=== PATIENT | female | born 1990 | race Caucasian/White ===

== ENCOUNTER 2017-03-13 19:56 | Inpatient (IN) | payer BC, OTHER ==
[2017-03-13] MEDS ORDERED: Sodium Chloride 0.9% 10 ML Syringe FLUSH PRN (20:47)
[2017-03-13] MEDS ORDERED: Nalbuphine 20 MG/1 ML Amp IVPUSH PRN (20:53)
[2017-03-13] MEDS ORDERED: Oxytocin/Lactated Ringers 10 UNIT/1,000 ML BAG IV SCH (21:00)
[2017-03-13] MEDS: Lactated Ringers 1,000 ML IV SCH ×3 (21:20→23:33)
[2017-03-13] MEDS ORDERED: diphenhydrAMINE 50 MG/ML SDV IVPUSH PRN (21:49)
[2017-03-13] MEDS ORDERED: fentaNYL 100 MCG/2 ML SDV EPIDUR PRN (21:49)
[2017-03-13] MEDS ORDERED: ePHEDrine 50 MG/ML SDV IVPUSH PRN (21:49)
[2017-03-13] MEDS ORDERED: Bupivacaine/fentaNYL/NS 100 ML Bag EPIDUR SCH (22:00)
--- NOTE | 2017-03-13 22:23 | PCM.PREANE ---
Preanesthetic Assessment - Anesthesia/Transfusion/Family Hx Anesthesia History: No Prior Anesthesia Family History of Anesthesia Reaction: No Transfusion History: No Prior Transfusion(s) - Review of Systems General: No Symptoms Pulmonary: No Symptoms Cardiovascular: No Symptoms Gastrointestinal: No Symptoms Neurological: No Symptoms Other: Reports: None - Physical Assessment Pulse: 76 O2 Sat by Pulse Oximetry: 100 Respiratory Rate: 20 Blood Pressure: 117/59 Temperature: 98.4 F Height: 5 ft 11 in Weight: 72.575 kg ASA Class: 2 Mental Status: Alert & Oriented x3 Airway Class: Mallampati = 1 Dentition: Reports: Normal Dentition Thyro-Mental Finger Breadths: 3 Mouth Opening Finger Breadths: 3 ROM/Head Extension: Full Lungs: Clear to Auscultation, Normal Respiratory Effort Cardiovascular: Regular Rate, Regular Rhythm - Lab Values: Laboratory Last Values WBC 10.96 K/mm3 (3.98-10.04) H 03/13/17 21:04 RBC 4.47 M/mm3 (3.98-5.22) 03/13/17 21:04 Hgb 12.3 gm/L (11.2-15.7) 03/13/17 21:04 Hct 38.0 % (34.1-44.9) 03/13/17 21:04 MCV 85.0 fl (79.4-94.8) 03/13/17 21:04 MCH 27.5 pg (25.6-32.2) 03/13/17 21:04 MCHC 32.4 g/dl (32.2-35.5) 03/13/17 21:04 RDW Std Deviation 42.2 fL (36.4-46.3) 03/13/17 21:04 Plt Count 206 K/mm3 (182-369) 03/13/17 21:04 MPV 12.3 fl (9.4-12.3) 03/13/17 21:04 Neut % (Auto) 74.3 % (34.0-71.1) H 03/13/17 21:04 Lymph % (Auto) 17.3 % (19.3-51.7) L 03/13/17 21:04 [place] % (Auto) 7.7 % (4.7-12.5) 03/13/17 21:04 Eos % (Auto) 0.3 (0.7-5.8) L 03/13/17 21:04 Baso % (Auto) 0.2 % (0.1-1.2) 03/13/17 21:04 Neut # (Auto) 8.15 K/mm3 (1.56-6.13) H 03/13/17 21:04 Lymph # (Auto) 1.90 K/mm3 (1.18-3.74) 03/13/17 21:04 [place] # (Auto) 0.84 K/mm3 (0.24-0.36) H 03/13/17 21:04 Eos # (Auto) 0.03 K/mm3 (0.04-0.36) L 03/13/17 21:04 Baso # (Auto) 0.02 K/mm3 (0.01-0.08) 03/13/17 21:04 - Allergies Allergies/Adverse Reactions: Allergies Allergy/AdvReac Type Severity Reaction Status Date / Time Penicillins Allergy Rash Verified 08/17/16 13:54 - Blood Blood Available: No - Acknowledgements Anesthesia Type Planned: Epidural Pt an Appropriate Candidate for the Planned Anesthesia: Yes Alternatives and Risks of Anesthesia Discussed w Pt/Guardian: Yes Pt/Guardian Understands and Agrees with Anesthesia Plan: Yes PreAnesthesia Questionnaire Cardiovascular History: Reports: None Respiratory History: Reports: None Gastrointestinal History: Reports: GERD (with preg) : 1 (39 weeks 2) Para: 0 - SUBSTANCE USE Smoking Status *Q: Never Smoker Tobacco Use Within Last Twelve Months: No Second Hand Smoke Exposure: No Days Per Week of Alcohol Use: 0 Recreational Drug Use History: No - HOME MEDS Home Medications: Home Meds Cranberry Conc/Ascorbic Acid [Cranberry 6,000 mg Softgel] 1 each PO DAILY [History] Doxylamine/Pyridoxine HCl [Diclegis Dr 10-10 mg Tablet] 10 mg PO DAILY PRN 08/17 [History] Vit 90/Iron Fum/Folic [ Formula] 1 each PO DAILY 08/17/16 [ History] - CURRENT (IN HOUSE) MEDS Current Meds: Current Medications Diphenhydramine HCl (Benadryl) 25 mg IVPUSH Q6H PRN PRN Reason: pruritis Ephedrine Sulfate (Ephedrine Sulfate) 5 mg IVPUSH ASDIRECTED PRN PRN Reason: Hypotension Fentanyl (Sublimaze) 100 mcg EPIDUR Q3H PRN PRN Reason: Pain Last Admin: 03/13/17 22:19 Dose: 100 mcg Fentanyl/Bupivacaine HCl (Fentanyl/Bupivacaine/Ns 2 Mcg-0.125% 100 Ml) 100 ml EPIDUR ASDIRECTED ROCHELLE Last Admin: 03/13/17 22:19 Dose: 100 ml Lactated Ringer's (Ringers, Lactated) 1,000 mls @ 100 mls/hr IV ASDIRECTED ROCHELLE Oxytocin/Lactated Ringer's (Pitocin In Lr 10 Units/1,000 Ml) 10 unit in 1,000 mls @ 500 mls/hr IV .CONTINUOUS ROCHELLE PRN Reason: Protocol Nalbuphine HCl (Nubain) 10 mg IVPUSH Q2H PRN PRN Reason: Pain (moderate 4-6) Sodium Chloride (Saline Flush) 10 ml FLUSH ASDIRECTED PRN PRN Reason: Keep Vein Open
--- NOTE | 2017-03-13 22:58 | PCM.LDHP ---
L&D History of Present Illness - General Date of Service: 03/13/17 Admit Problem/Dx: Patient Status Order with Admit Dx/Problem 03/13/17 20:58 Admission Status [Patient Status] [ADT] Routine Admission Diagnosis/Problem Admission Diagnosis/Problem 03/13/17 22:45 39-1/7 week intrauterine , active labor, progressive cervical dilation Source of Information: Patient History Limitations: Reports: No Limitations - History of Present Illness Introduction:: Tacos is a 27-year-old 1 para 0 white female who is admitted this evening with active labor. She has an SETH of 03/19/2017 based upon a certain last menstrual period starting 06/12/2016 and lasting for 5-7 days. She is using no control to time conception. Patient had cervical progression from approximately 2+ centimeters earlier today in clinic to 6 cm at the present time. Is bulging bag saldana which is ruptured resulting in mild meconium -stained amniotic fluid. heart tones are reassuring. 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 SETH 03/19/2017, again determined by certain last menstrual period starting 06/12/2016. Patient had 2 ultrasounds dated 06/09 and 10/31/2016 both consistent with her LMP dating. Tacos had menarche age 14. Cycles every 28 days, duration 5-7 days. Using no control time conception. First visit was on08/09/2016 at 9-3/7 weeks gestational age. She was seen on a regular basis throughout the . She had a weight gain of 35.2 pounds over the course of the . Her vital signs been stable. Fundal height growth has been appropriate. Baby has been active and no significant concerns are noted. Her group B strep screen is negative. She did have low platelets on first visit but second trimester they were 201, 000 and normal. She has had some recurrent UTIs. She is Rh- and did receive Rh immunoglobulin during the course of the . T dap was done on 01/30/2017. Laboratory testing and showed a blood which was B-. Antibody screen is negative. First labs showed hemoglobin of 14.9 g/dL. Platelets were low at 143,000. She is rubella immune. RPR is nonreactive. HIV and hepatitis B assays were both negative. Chlamydia and gonorrhea assays negative. Second trimester testing showed a hemoglobin 11.5 g/dL at which time patient was advised to start on some iron supplementation. Her platelet count was 201,000 and her 1 hour GTT was normal at 73. She had a an early diabetic screening test that was done and was normal at 99. Her group B strep screen was negative. Allergies: penicillins which cause a rash. Medications: 1. vitamins 1 daily. Past medical history: Allergy to amoxicillin. Past surgical history: Noncontributory Family history: patient has 4 siblings - 1 sister age 22 alive and well. One brother 30 - alive and well. One sister 33 and 1 brother 36 both alive and well. Mother age 59 is alive and well with thyroid disorder. Father age 59 and is alive and well. Maternal grandmother is in their 80s uncertain cause. Maternal grandfather in 80s also from an uncertain cause. Paternal grandmother at age 78 from Parkinson's and Alzheimer's complications. Paternal grandfather at age 67 from a heart attack. Social history: Patient is . is [place]. She does not use any significant muscle alcohol, drugs or tobacco. They live in [place], [place]. Review of systems: In general-no complaints -energy level is normal. Skin-negative Wkmob-[id number]-nu infectious symptoms or shortness of breath Cardiovascular-no chest pain or exercise intolerance GI-negative -changes associated with only Musculoskeletal-no swellings or other concerns Neurologicnegative Physical exam: In general the patient is a well-developed, well-nourished, pleasant female stated age in no acute distress. Patient's blood pressure on first mental visit was 98/70. Body mass index is 23. Height is 5 feet 11. Initial weight was 161.2 pounds. Weight earlier today in clinic was 195.6 pounds and blood pressure was 88/62. heart rate was 144. In general the patient is a well-developed, well-nourished, pleasant female of stated age in no acute distress. Skin is warm and dry without lesions. HEENT, neck and back within normal limits Cardiovascular exam shows regular rate and rhythm without murmurs. Lungs are clear with good breath sounds in all lung hartman. Cardiovascular exam shows regular rate and rhythm without murmurs. Breast exam is deferred, was done at first mental visit and found to be normal. Patient plans to nurse. Abdomen is protuberant with with fundal height of 38+ centimeters, vertex presentation, Cervix is 6 cm, 95% effaced, -2 station, very soft, mid to anterior. Artificial rupture membranes resulted in a very light meconium-stained amniotic fluid. Extremities and neurological exam are grossly within normal limits. Pain Score: 9 - Related Data Allergies/Adverse Reactions: Allergies Allergy/AdvReac Type Severity Reaction Status Date / Time Penicillins Allergy Rash Verified 08/17/16 13:54 Home Medications: Home Meds Cranberry Conc/Ascorbic Acid [Cranberry 6,000 mg Softgel] 1 each PO DAILY [History] Doxylamine/Pyridoxine HCl [Diclegis Dr 10-10 mg Tablet] 10 mg PO DAILY PRN 08/17 [History] Vit 90/Iron Fum/Folic [ Formula] 1 each PO DAILY 08/17/16 [ History] Past Medical History Cardiovascular History: Reports: None Respiratory History: Reports: None Gastrointestinal History: Reports: GERD (with preg) Social & Family History - Tobacco Use Smoking Status *Q: Never Smoker Second Hand Smoke Exposure: No - Alcohol Use Days Per Week of Alcohol Use: 0 - Recreational Drug Use Recreational Drug Use: No H&P Review of Systems - Review of Systems: Review Of Systems: See Below L&D Exam - Exam Exam: See Below - Vital Signs Vital Signs: Last Vital Signs Temp 36.9 C 03/13/17 22:23 Pulse 76 03/13/17 22:23 Resp 20 03/13/17 22:23 BP 117/59 L 03/13/17 22:23 Pulse Ox 100 03/13/17 22:23 Weight: 72.575 kg - Patient Data Lab Results Last 24 hrs: Laboratory Results - last 24 hr 03/13/17 03/13/17 Range/Units 21:04 21:04 WBC 10.96 H (3.98-10.04) K/mm3 RBC 4.47 (3.98-5.22) M/mm3 Hgb 12.3 (11.2-15.7) gm/L Hct 38.0 (34.1-44.9) % MCV 85.0 (79.4-94.8) fl MCH 27.5 (25.6-32.2) pg MCHC 32.4 (32.2-35.5) g/dl RDW Std Deviation 42.2 (36.4-46.3) fL Plt Count 206 (182-369) K/mm3 MPV 12.3 (9.4-12.3) fl Neut % (Auto) 74.3 H (34.0-71.1) % Lymph % (Auto) 17.3 L (19.3-51.7) % [place] % (Auto) 7.7 (4.7-12.5) % Eos % (Auto) 0.3 L (0.7-5.8) Baso % (Auto) 0.2 (0.1-1.2) % Neut # (Auto) 8.15 H (1.56-6.13) K/mm3 Lymph # (Auto) 1.90 (1.18-3.74) K/mm3 [place] # (Auto) 0.84 H (0.24-0.36) K/mm3 Eos # (Auto) 0.03 L (0.04-0.36) K/mm3 Baso # (Auto) 0.02 (0.01-0.08) K/mm3 Blood Type B NEGATIVE Gel Antibody Screen Negative Result Diagrams: 03/13/17 21:04 Problem List Initiated/Reviewed/Updated: Yes Orders Last 24hrs: Active Orders 24 hr Category Date Time Status Admission Status [Patient Status] [ADT] Routine ADT 03/13/17 20:58 Active Activity as Tolerated [RC] PFP Care 03/13/17 20:47 Active Communication Order [RC] ASDIRECTED Care 03/13/17 20:47 Active Heart Tones [RC] ASDIRECTED Care 03/13/17 20:48 Active Notify Provider [RC] ASDIRECTED Care 03/13/17 21:49 Active Notify Provider [RC] PFP Care 03/13/17 20:47 Active Notify Provider [RC] PRN Care 03/13/17 20:47 Active Peripheral IV Care [RC] . DIRECTED Care 03/13/17 20:48 Active Vital Signs [RC] PER UNIT ROUTINE Care 03/13/17 20:47 Active Bupivacaine/fentaNYL/NS [fentaNYL/Bupivacaine/NS 2 MCG- Med 03/13/17 22:00 Active 0.125% 100 ML] 100 ml EPIDUR ASDIRECTED Lactated Ringers [Ringers, Lactated] 1,000 ml Med 03/13/17 21:00 Active IV ASDIRECTED Nalbuphine [Nubain] Med 03/13/17 20:53 Active 10 mg IVPUSH Q2H PRN Oxytocin/Lactated Ringers [Pitocin in LR 10 Units/1,000 Med 03/13/17 21:00 Active ML] 10 unit in 1,000 ml IV .CONTINUOUS Sodium Chloride 0.9% [Saline Flush] Med 03/13/17 20:47 Active 10 ml FLUSH ASDIRECTED PRN diphenhydrAMINE [Benadryl] Med 03/13/17 21:49 Active 25 mg IVPUSH Q6H PRN ePHEDrine [ePHEDrine Sulfate] Med 03/13/17 21:49 Active 5 mg IVPUSH ASDIRECTED PRN fentaNYL [Sublimaze] Med 03/13/17 21:49 Active 100 mcg EPIDUR Q3H PRN Electronic Heart Tones Ext w TOCO [WOMSER] Ot 03/13/17 20:47 Ordered Routine Electronic Heart Tones Internal [WOMSER] Per Unit Ot 03/13/17 20:47 Ordered Routine Peripheral IV Insertion Adult [OM.PC] Routine Oth 03/13/17 20:47 Ordered Resuscitation Status Routine Resus Stat 03/13/17 20:47 Ordered Medication Orders Diphenhydramine HCl (Benadryl) 25 mg IVPUSH Q6H PRN PRN Reason: pruritis Ephedrine Sulfate (Ephedrine Sulfate) 5 mg IVPUSH ASDIRECTED PRN PRN Reason: Hypotension Fentanyl (Sublimaze) 100 mcg EPIDUR Q3H PRN PRN Reason: Pain Last Admin: 03/13/17 22:19 Dose: 100 mcg Fentanyl/Bupivacaine HCl (Fentanyl/Bupivacaine/Ns 2 Mcg-0.125% 100 Ml) 100 ml EPIDUR ASDIRECTED ROCHELLE Last Admin: 03/13/17 22:19 Dose: 100 ml Lactated Ringer's (Ringers, Lactated) 1,000 mls @ 100 mls/hr IV ASDIRECTED ROCHELLE Oxytocin/Lactated Ringer's (Pitocin In Lr 10 Units/1,000 Ml) 10 unit in 1,000 mls @ 500 mls/hr IV .CONTINUOUS ROCHELLE PRN Reason: Protocol Nalbuphine HCl (Nubain) 10 mg IVPUSH Q2H PRN PRN Reason: Pain (moderate 4-6) Sodium Chloride (Saline Flush) 10 ml FLUSH ASDIRECTED PRN PRN Reason: Keep Vein Open Assessment/Plan Comment:: Assessment: 1. 39-17 week intrauterine , active spontaneous labor with advanced cervical dilation 2. Mild meconium-stained amniotic fluid 3. Very reassuring heart tones and contraction pattern 4. Group B strep screen is negative. 5. T dap given during , rubella immune. RPR nonreactive. 6. Patient plans to nurse. 7. Epidural in labor and delivery for analgesia. Plan: 1. Anticipate normal spontaneous vaginal delivery. 2. Epidural for pain control 3. Intermittent monitoring of heart tones 4. Support decision to nurse.
--- NOTE | 2017-03-14 05:51 | PCM.SN ---
- Free Text/Narrative Note: Delivery note: Tacos is a 27-year-old 1 now para 1001 white female who was admitted to labor and delivery last evening in active labor. She was approximately 4-5 cm dilated with bulging bag of saldana upon admission and progressed steadily to complete cervical dilation by approximately 0500 hrs. Pushed for approximately a half an hour and then delivered a viable, lambert, female , weighing 3580 g (7 pounds 14.3 ounces), 21 inches long, Apgars of 9 and 9 in a left occiput anterior position. She had very light meconium- stained amniotic fluid. Dr. Garnett was present for the delivery. The patient had a superficial second-degree perineal laceration. She had an epidural in place for labor and analgesia which was adequate for anesthesia for the repair of her laceration. Her laceration was repaired with 3-0 Monocryl in a routine fashion. The placenta delivered at 0536 hrs., in a Cara presentation. It appeared intact and complete. It was discarded per patient desire. The umbilical cord had 3 vessels. Estimated blood loss was 100 mL. Pitocin was administered IV after delivery of the baby. Condition: Good. The patient plans to nurse.
[2017-03-14] MEDS ORDERED: Docusate Sodium 100 MG Cap PO PRN (06:45)
[2017-03-14] MEDS ORDERED: Acetaminophen 325 MG Tab PO PRN (06:45)
[2017-03-14] MEDS ORDERED: Lanolin 100% Cream 7 GM Tube TOP PRN (06:45)
[2017-03-14] MEDS ORDERED: Witch Hazel Medicated Pads 100/Jar TOP PRN (06:45)
[2017-03-14] MEDS: Benzocaine/Menthol 20%-0.5% Spray 56 GM Canister TOP PRN (08:31)
[2017-03-14] MEDS: Prenatal Multivitamin with Calcium/Folic Acid/Iron Tab PO SCH (10:27)
[2017-03-14] MEDS: Ibuprofen 600 MG Tab PO PRN ×2 (11:41→17:37)
--- NOTE | 2017-03-14 17:49 | PCM48HPAN ---
Post Anesthesia Note - EVALUATION WITHIN 48HRS OF ANESTHETIC Vital Signs in Normal Range: Yes Patient Participated in Evaluation: Yes Respiratory Function Stable: Yes Airway Patent: Yes Cardiovascular Function Stable: Yes Hydration Status Stable: Yes Pain Control Satisfactory: Yes Nausea and Vomiting Control Satisfactory: Yes Mental Status Recovered: Yes
[2017-03-14] MEDS ORDERED: Bupivacaine 0.25% 10 ML SDV ONE (22:22)
[2017-03-15] MEDS: Ibuprofen 600 MG Tab PO PRN ×3 (01:32→20:33)
[2017-03-15] MEDS: Prenatal Multivitamin with Calcium/Folic Acid/Iron Tab PO SCH (08:06)
--- NOTE | 2017-03-15 09:18 | PCM.SN ---
- Free Text/Narrative Note: Urine is doing okay today. Nursing is going well. She is working with the network security consultant Ginger Murphy to improve this. She is interested in staying until tomorrow. Afebrile, vital signs stable. Uterus is firm, just below the umbilicus. Legs nontender Assessment/plan: day 1 doing well. Nursing going poorly but patient is invested. Hemoglobin scheduled today.
--- NOTE | 2017-03-16 05:17 | PCM.DCSUM1 ---
Discharge Summary - Hospital Course Free Text/Narrative:: Tacos is a 27-year-old 1 now para 1001 white female who was admitted to labor and delivery 2 evenings ago in active labor. She was approximately 4-5 cm dilated with bulging bag of saldana upon admission and progressed steadily to complete cervical dilation by approximately 0500 hrs. Pushed for approximately a half an hour and then delivered a viable, lambert, female , weighing 3580 g (7 pounds 14.3 ounces), 21 inches long, Apgars of 9 and 9 in a left occiput anterior position. She had very light meconium-stained amniotic fluid. Dr. Garnett was present for the delivery. The patient had a superficial second- degree perineal laceration. She had an epidural in place for labor and analgesia which was adequate for anesthesia for the repair of her laceration. Her laceration was repaired with 3-0 Monocryl in a routine fashion. The placenta delivered at 0536 hrs., in a Cara presentation. It appeared intact and complete. It was discarded per patient desire. The umbilical cord had 3 vessels. Estimated blood loss was 100 mL. Pitocin was administered IV after delivery of the baby. Condition: Good. The patient plans to nurse. patient's had some difficulty nursing. This has improved. She is getting some colostrum. Baby is doing better. She has been afebrile. Vital signs stable. Follow-up CBC shows decrease in hemoglobin but she appears to be doing well clinically. No further therapy of this area is deemed necessary. Patient is desiring discharge home. - Discharge Data Discharge Date: 03/16/17 Discharge Disposition: Home, Self-Care 01 Condition: Good - Patient Instructions Diet: Regular Diet as Tolerated Activity: As Tolerated (No intercourse or tampons until bleeding resolves) Driving: May Drive Today (May drive if absolutely necessary.) Showering/Bathing: May Shower (Or take a bath) Notify Provider of: Fever, Increased Pain, Swelling and Redness, Nausea and/or Vomiting - Discharge Plan Home Medications: Home Meds Cranberry Conc/Ascorbic Acid [Cranberry 6,000 mg Softgel] 1 each PO DAILY [History] Vit 90/Iron Fum/Folic [ Formula] 1 each PO DAILY 08/17/16 [ History] Ibuprofen [IJD: Ibuprofen] 600 mg PO Q4H PRN #30 tablet 03/16/17 [Rx] Referrals: Clarence Thomas MD [Primary Care Provider] - - Discharge Summary/Plan Comment DC Time >30 min.: Yes Discharge Summary/Plan Comment: Discharge instructions: 1. Discharge home 2. Regular, high fiber, nursing diet was increased calories and calcium as recommended 3. Cautions given concern increased pain, bleeding, temperature, signs/symptoms of DVT/PE. 4. Activity and follow-up are discussed in detail with patient. 5. Medications per home medication was printed, discussed with and given to the patient. 6. Return to clinic-Dr. Thomas-6 weeks-[facility]. Diagnosis: Term -delivered Condition: Good - Patient Data Vitals - Most Recent: Last Vital Signs Temp 36.3 C 03/15/17 20:30 Pulse 79 03/15/17 20:30 Resp 16 03/15/17 20:30 BP 110/83 03/15/17 20:30 Pulse Ox 100 03/15/17 20:30 Weight - Most Recent: 72.575 kg I&O - Last 24 hours: Intake & Output 03/15/17 03/15/17 03/16/17 14:59 22:59 06:59 Intake Total 120 Balance 120 Lab Results - Last 24 hrs: Laboratory Results - last 24 hr 03/15/17 Range/Units 07:00 WBC 9.13 (3.98-10.04) K/mm3 RBC 3.41 L (3.98-5.22) M/mm3 Hgb 9.2 L (11.2-15.7) gm/L Hct 29.7 L (34.1-44.9) % MCV 87.1 (79.4-94.8) fl MCH 27.0 (25.6-32.2) pg MCHC 31.0 L (32.2-35.5) g/dl RDW Std Deviation 42.9 (36.4-46.3) fL Plt Count 141 L (182-369) K/mm3 MPV 12.3 (9.4-12.3) fl Med Orders - Current: Current Medications Acetaminophen (Tylenol) 650 mg PO Q4H PRN PRN Reason: mild pain or fever Benzocaine/Menthol (Dermoplast Pain Relief [place]) 0 gm TOP ASDIRECTED PRN PRN Reason: Perineal Comfort Measure Last Admin: 03/14/17 08:31 Dose: 56 gm Docusate Sodium (Colace) 100 mg PO BID PRN PRN Reason: Constipation Emollient Ointment (Lansinoh Hpa) 0 gm TOP ASDIRECTED PRN PRN Reason: Sore Nipples Ibuprofen (Motrin) 600 mg PO Q4H PRN PRN Reason: Mild pain or fever Last Admin: 03/15/17 20:33 Dose: 600 mg Prenat Multivit/Print Shop Stenographer/Iron/Folic Ac ( Plus Iron) 1 each PO DAILY ROCHELLE Last Admin: 03/15/17 08:06 Dose: 1 each Witch Rosi (Tucks) 1 pad TOP ASDIRECTED PRN PRN Reason: Hemorrhoid pain Last Admin: 03/14/17 08:31 Dose: 1 pad Discontinued Medications Bupivacaine HCl (Sensorcaine-Mpf 0.25%) 10 ml .ROUTE .[facility] Stop: 03/14/17 22:23 Diphenhydramine HCl (Benadryl) 25 mg IVPUSH Q6H PRN PRN Reason: pruritis Ephedrine Sulfate (Ephedrine Sulfate) 5 mg IVPUSH ASDIRECTED PRN PRN Reason: Hypotension Fentanyl (Sublimaze) 100 mcg EPIDUR Q3H PRN PRN Reason: Pain Last Admin: 03/13/17 22:19 Dose: 100 mcg Fentanyl/Bupivacaine HCl (Fentanyl/Bupivacaine/Ns 2 Mcg-0.125% 100 Ml) 100 ml EPIDUR ASDIRECTED [facility] Last Admin: 03/13/17 22:19 Dose: 100 ml Lactated Ringer's (Ringers, Lactated) 1,000 mls @ 100 mls/hr IV ASDIRECTED ROCHELLE Last Admin: 03/13/17 23:33 Dose: 100 mls/hr Oxytocin/Lactated Ringer's (Pitocin In Lr 10 Units/1,000 Ml) 10 unit in 1,000 mls @ 500 mls/hr IV .CONTINUOUS ROCHELLE PRN Reason: Protocol Nalbuphine HCl (Nubain) 10 mg IVPUSH Q2H PRN PRN Reason: Pain (moderate 4-6) Sodium Chloride (Saline Flush) 10 ml FLUSH ASDIRECTED PRN PRN Reason: Keep Vein Open *Q Meaningful Use (DIS) - VTE *Q VTE Criteria *Q: - Stroke *Q Stroke Criteria *Q: - AMI *Q AMI Criteria *Q:
[2017-03-16 10:46] VITALS: BP 111/76
[2017-03-16] MEDS: Benzocaine/Menthol 20%-0.5% Spray 56 GM Canister TOP PRN (12:08)
[2017-03-16] MEDS: Prenatal Multivitamin with Calcium/Folic Acid/Iron Tab PO SCH (14:50)
== END 2017-03-16 12:10 | disposition home or self-care (01) | DRG 560 ==
LOC: JD.OB 19:56 → JD.OBCHECK 19:56 → JD.OB 20:48 → OBSVTOIN 03-14 05:27
PROVIDERS: ADMIT Obstetrics & Gynecology; ATTEND Obstetrics & Gynecology
PROC: 10E0XZZ Delivery of Products of Conception, External Approach (ICD-10-PCS; principal; 2017-03-14)
DX: O70.1 Second degree perineal laceration during delivery (principal); O77.0 Labor and delivery complicated by meconium in amniotic fluid; Z3A.39 39 weeks gestation of pregnancy; Z37.0 Single live birth; Z88.8 Allergy status to other drugs, medicaments and biological substances
CPT/HCPCS: 36415; 82962; 85025; 85027; 86850; 86900; 86901; A9270-GY; J3010; J7120

== ENCOUNTER 2020-02-03 05:19 | Inpatient (IN) | payer BC ==
--- NOTE | 2020-01-28 08:06 | PCM.LDHP ---
L&D History of Present Illness - General Date of Service: 02/03/20 Admit Problem/Dx: Admission Diagnosis/Problem Admission Diagnosis/Problem 01/28/20 07:52 Tacos is a 30-year-old 2 para 1001 white female was admitted at 39-0/7 weeks gestational age with an SETH of 02/10/2020 for an attempt at external cephalic version for xavi breech presentation possible primary section if version is unsuccessful. Source of Information: Patient History Limitations: Reports: No Limitations - History of Present Illness Introduction:: Tacos is a 30-year-old 2 para 1001 white female was admitted at 39-0/7 weeks gestational age with an SETH of 02/10/2020 for an attempt at external cephalic version for xavi breech presentation possible primary section if version is unsuccessful.The procedure of external cephalic version, its risks, benefits, limitations, follow-up and the possible need for primary section if version is unsuccessful are all discussed in detail with patient. She appears to understand, wishes to proceed and has signed a consent for external spelled version and for section. GROUTMAN history: Tacos is a 2 para 1001 female with an SETH of 02/10/2020 is based upon a certain last menstrual period which started on 05/06/2019. Dates are supported by 4 ultrasounds performed during the including those dated 07/08/2019, 09/23/2019, 01/01/2020 and 01/27/2020. Patient's menarche occurred at age 12. Cycles are monthly. She is not using any control the time of conception. Duration of periods is 5 days. Certain last menstrual period 2018. Patient has had 1 previous delivery on 03/14/2017 at 39-2/7 weeks gestational age. She had a 9 hour labor and delivered a 7 lbs. 14 oz. female infant via . She had an epidural for labor analgesia. Child's name is Kandace. She denies any STI's. She has had no abnormal Pap smears. course: Patient was first seen for this on 07/08/2019 at which time she was 9 weeks gestational age. She's been seen on a regular basis throughout the . Her weight gain was from 168.5 pounds up to 200.4 pounds for approximately a 35 pound gain. Fundal height growth has been appropriate considering breech presentation. Vital signs have been stable throughout the course. She has had a group B strep screen which was negative. Patient is Rh- but is also Rh- therefore Rh- midline and was not given. Patient declined genetic evaluation during the course of the . She declined flu shot. She received her Tdap immunization on 2019. She plans to breast-feed. She has had some restless leg symptoms during the course of the . Laboratory testing shows blood to be B- with negative antibody screen. First hemoglobin was 14.2 g/dL and platelets were 233,000. She is rubella immune. RPR is nonreactive. Urine culture was negative. Hepatitis B surface antigen and HIV assays were both negative. Chlamydia and gonorrhea tests were both negative. Second trimester labs showed hemoglobin of 11.0 g/dL. Platelets are 216,001 hour GTT was 85. RPR on 10/28/2019 was nonreactive. Group B strep screen was negative. Allergies: Penicillin which causes a rash Medications: 1. Hydroxyzine 25 mg by mouth daily at bedtime when necessary for restless leg symptoms 2. tablets one by mouth daily. Past medical history: 1. 03/14/2017. Past surgical history: Unremarkable Family history: Patient's mother is age 59 alive and well but has some type of benign thyroid disorder. Father age 59 alive and well. 4 siblings including one sister age 22 alive and well. One brother age 30 is alive and well. One sister age 33 alive and well and 1 brother age 36 alive and well. Maternal grandmother in her 80s from uncertain cause. Maternal grandfather at age 80 from uncertain causes. Paternal grandmother at age 78 from Parkinson 's disease and Alzheimer complications. Paternal grandfather at age 67 from a heart attack. There are no family history for cancer, bleeding or clotting disorders, anesthesia related issues or related problems. Social history: Patient is . She isn't web merchant. She lives in [place], [place]. She is a college graduate. is [place]. She does not use any significant amounts of alcohol, drugs or tobacco. Review of systems: In general patient has no complaints. Baby has been active. She denies any contractions. Skin: Negative Lungs: No infectious symptoms or shortness of breath Cardiovascular: No chest pain or exercise intolerance Breasts: No lumps, changes in size, pain, dimpling, discharge or axillary or supraclavicular concerns. Some changes associated with . GI: Negative : Body habitus changes associated with . Musculoskeletal: Negative Neurological: Negative In general the patient is well-developed, well-nourished, pleasant female of stated age in no acute distress. Last evaluation clinic patient's blood pressure was 100/68. Weight was 200.4 pounds. FHR was 130 bpm. Pregravid weight was 168.2 pounds. Height is 5 feet 11 inches. Prepregnancy body mass index was 23. Skin is warm dry without lesions. HEENT, neck and back within normal limits. Lungs are clear with good breath sounds in all lung hartman. Cardiovascular exam shows regular and rhythm without murmurs. Breast exam is deferred at this time having been done at first visit and found to be normal. Patient plans to breast-feed. Abdomen is gravid with fundal height of 36 cm with Ector maneuvers showing baby in breech presentation. This is confirmed with ultrasound. Genital exam per digital exam shows patient to be closed, 50% effaced, mid position, -3 station on the only permitted exam 01/06/2020.. Extremities and neurological exam are grossly within normal limits. Transabdominal ultrasound is performed on 01/27/2020. Result is as follows: Ruiz, viable, intrauterine in a xavi breech presentation. Amniotic fluid index is normal. Composite measurements show an permitted gestational age of 38-6/7 weeks which is supportive of her previous dating for a final SETH of 02/10/2020. EFW is 3823 g (8 lbs. 7 oz.). FHR obtained with Doppler is 130 bpm. - Related Data Allergies/Adverse Reactions: Allergies Allergy/AdvReac Type Severity Reaction Status Date / Time Penicillins Allergy Rash Verified 08/17/16 13:54 Home Medications: Home Meds Cranberry Conc/Ascorbic Acid [Cranberry 6,000 mg Softgel] 1 each PO DAILY [History] Vit 90/Iron Fum/Folic [ Formula] 1 each PO DAILY 08/17/16 [ History] Ibuprofen [IJD: Ibuprofen] 600 mg PO Q4H PRN #30 tablet 03/16/17 [Rx] Past Medical History - Past Health History Medical/Surgical History: Denies Medical/Surgical History Cardiovascular History: Reports: None Respiratory History: Reports: None Gastrointestinal History: Reports: GERD (with preg) Genitourinary History: Reports: UTI, Recurrent Other Genitourinary History: UTI x 3 during ; none current. GROUTMAN History: Reports: Other Hematologic History: Low platelets earlier in ; spontaneously resolved later in and WNL today - Past Surgical History Female Surgical History: Reports: None Social & Family History - Family History Family Medical History: Noncontributory - Caffeine Use Caffeine Use: Reports: None H&P Review of Systems - Review of Systems: Review Of Systems: See Below L&D Exam - Exam Exam: See Below Problem List Initiated/Reviewed/Updated: Yes Assessment/Plan Comment:: 1. Upon admission patient is a 89-0/7 weeks gestational age with an SETH of 2019-xavi breech presentation admitted for an attempt at external cephalic version with possible section if version is unsuccessful. The procedure of version and section have been discussed in detail with patient on at least 3 occasions. She appears to understand the risks, benefits, limitations, follow-up and has signed a consent. She wishes to proceed. 2. Group B strep screen negative 3. Patient has be negative blood. is O- therefore patient has not had Rh immunoglobulin therapy during . 4. Patient plans to breast-feed. 5. If version is successful in labor ensues patient is okay with an epidural. If version is unsuccessful and is performed anesthesia will be per spinal block. 6. Patient has received her Tdap during the . 7. Patient declined genetic evaluation 8. Patient has had some restless leg syndrome during the course of . 9. Patient declined flu vaccination. 10. Somewhat nonspecific rash reaction to penicillin as a child. 11. RPR is nonreactive, patient is rubella immune. Plan: 1. External cephalic version attempt scheduled for 02/03/2020 with plan to proceed with induction of labor if successful. If unsuccessful proceed with primary section. 2. If is necessary we will proceed with DVT prophylaxis with SCDs and trial Ancef preoperatively for infection prophylaxis. 3.COVID-19 testing to be done within 96 hours of the time of attempt at version. Patient is to self isolate during that preoperative period. 4. Preoperative labs consistent CBC, type and screen, urinalysis. 5. Support breast-feeding decision
[~2020-02-03 05:19] MED LIST: Lactated Ringers 1,000 ML IV SCH; Lidocaine 1%/Sod Bicarbonate in NS 8.4% 1 ML Syringe IDERM PRN; Nalbuphine 10 MG/ML Syringe IVPUSH PRN; Ondansetron 4 MG/2 ML SDV IVPUSH PRN; Oxytocin/Lactated Ringers 10 UNIT/1,000 ML BAG IV SCH; Sodium Chloride 0.9% 10 ML Syringe FLUSH PRN; Terbutaline 1 MG/ML SDV IV PRN
[2020-02-03] MEDS ORDERED: Terbutaline 1 MG/ML SDV ONE (06:51)
[2020-02-03] MEDS ORDERED: Nalbuphine 10 MG/ML Syringe IVPUSH PRN (07:53)
[2020-02-03] MEDS ORDERED: Lidocaine 1%/Sod Bicarbonate in NS 8.4% 1 ML Syringe IDERM PRN (07:53)
[2020-02-03] MEDS ORDERED: Ondansetron 4 MG/2 ML SDV IVPUSH PRN (07:53)
[2020-02-03] MEDS ORDERED: Sodium Chloride 0.9% 10 ML Syringe FLUSH PRN ×2 (07:54)
[2020-02-03] MEDS ORDERED: Terbutaline 1 MG/ML SDV IV PRN (07:55)
[2020-02-03] MEDS ORDERED: Oxytocin/Lactated Ringers 10 UNIT/1,000 ML BAG IV SCH ×2 (08:00)
--- NOTE | 2020-02-03 08:42 | PCM.SN.2 ---
- Free Text/Narrative Note: Procedure note: Tacos is a 30-year-old 2 para 1001 white female was admitted at 39-0/7 weeks gestational age with an SETH of 02/10/2020 for an attempt at external cephalic version for xavi breech presentation. Appropriate consents were signed for version and for section. labs were obtained. Anesthesia and surgery department were aware of the patient's version attempt. And was to proceed with if the version was unsuccessful. Timeout was performed. Patient IV in place and had received some IV fluids preprocedure. heart tones were reassuring pursestring. No contractions were noted. Cervix was found to be 2 cm dilated, 70% effaced, presenting part not palpated initially. Mid position cervix noted, very soft consistency. Bedside ultrasound was done and revealed a breech presentation. Head was noted in the right upper quadrant and back to the left with the baby in a xavi breech presentation. The patient was administered IV terbutaline 0.25 mg which was diluted to 5 mL and administered IV over 2-3 minutes. The patient tolerated this well.Using routine version technique the baby was converted to a cephalic presentation by rolling the baby forward using external manipulation. Patient has some discomfort but tolerated this generally well. Version took less than 2 minutes and had remained in the pelvis. heart tones were monitored �2 during this time and were found to be within normal limits. Monitors place afterwards and heart tones were reassuring. Terbutaline was discontinued and patient was started on IV Pitocin per protocol to facilitate increased uterine tone and initiate labor contractions.
[2020-02-03] MEDS: Lactated Ringers 1,000 ML IV SCH ×3 (09:28→11:35)
[2020-02-03] MEDS ORDERED: diphenhydrAMINE 50 MG/ML SDV IVPUSH PRN (11:02)
[2020-02-03] MEDS ORDERED: fentaNYL 100 MCG/2 ML SDV EPIDUR PRN (11:02)
[2020-02-03] MEDS ORDERED: ePHEDrine 50 MG/ML SDV IVPUSH PRN (11:02)
[2020-02-03] MEDS ORDERED: Bupivacaine/fentaNYL/NS 100 ML Bag EPIDUR PRN (11:02)
--- NOTE | 2020-02-03 12:06 | PCM.PREANE ---
Preanesthetic Assessment - Procedure Proposed Procedure: epidural - Anesthesia/Transfusion/Family Hx Anesthesia History: Prior Anesthesia Without Reaction Family History of Anesthesia Reaction: No Transfusion History: No Prior Transfusion(s) - Review of Systems General: Fatigue Pulmonary: No Symptoms Cardiovascular: No Symptoms Gastrointestinal: Abdominal Pain (labor) Neurological: No Symptoms Other: Reports: None - Physical Assessment Vital Signs: Last Vital Signs Temp 36.4 C 02/03/20 05:00 Pulse 98 02/03/20 05:00 Resp 16 02/03/20 05:00 BP 104/69 02/03/20 05:00 Pulse Ox 100 02/03/20 05:00 Height: 1.8 m Weight: 91.172 kg ASA Class: 2 Mental Status: Alert & Oriented x3 Airway Class: Mallampati = 1 Dentition: Reports: Normal Dentition Thyro-Mental Finger Breadths: 3 Mouth Opening Finger Breadths: 3 ROM/Head Extension: Full Lungs: Clear to Auscultation, Normal Respiratory Effort Cardiovascular: Regular Rate, Regular Rhythm - Lab Values: Laboratory Last Values WBC 8.72 K/mm3 (3.98-10.04) 02/03/20 05:45 RBC 4.06 M/mm3 (3.98-5.22) 02/03/20 05:45 Hgb 10.1 gm/dl (11.2-15.7) L 02/03/20 05:45 Hct 33.1 % (34.1-44.9) L 02/03/20 05:45 MCV 81.5 fl (79.4-94.8) D 02/03/20 05:45 MCH 24.9 pg (25.6-32.2) L 02/03/20 05:45 MCHC 30.5 g/dl (32.2-35.5) L 02/03/20 05:45 RDW Std Deviation 41.5 fL (36.4-46.3) 02/03/20 05:45 Plt Count 219 K/mm3 (182-369) 02/03/20 05:45 MPV 12.3 fl (9.4-12.3) 02/03/20 05:45 Neut % (Auto) 66.1 % (34.0-71.1) 02/03/20 05:45 Lymph % (Auto) 24.9 % (19.3-51.7) 02/03/20 05:45 [place] % (Auto) 8.5 % (4.7-12.5) 02/03/20 05:45 Eos % (Auto) 0.2 (0.7-5.8) L 02/03/20 05:45 Baso % (Auto) 0.1 % (0.1-1.2) 02/03/20 05:45 Neut # (Auto) 5.76 K/mm3 (1.56-6.13) 02/03/20 05:45 Lymph # (Auto) 2.17 K/mm3 (1.18-3.74) 02/03/20 05:45 [place] # (Auto) 0.74 K/mm3 (0.24-0.36) H 02/03/20 05:45 Eos # (Auto) 0.02 K/mm3 (0.04-0.36) L 02/03/20 05:45 Baso # (Auto) 0.01 K/mm3 (0.01-0.08) 02/03/20 05:45 SARS Virus RNA (PCR) Negative (NEGATIVE) 01/31/20 14:35 Blood Type B NEGATIVE 02/03/20 05:45 Gel Antibody Screen Negative 02/03/20 05:45 - Allergies Allergies/Adverse Reactions: Allergies Allergy/AdvReac Type Severity Reaction Status Date / Time Penicillins Allergy Rash Verified 02/03/20 06:31 - Anesthesia Plan Pre-Op Medication Ordered: None - Acknowledgements Anesthesia Type Planned: Epidural Pt an Appropriate Candidate for the Planned Anesthesia: Yes Alternatives and Risks of Anesthesia Discussed w Pt/Guardian: Yes Pt/Guardian Understands and Agrees with Anesthesia Plan: Yes PreAnesthesia Questionnaire - Past Health History Medical/Surgical History: Denies Medical/Surgical History Cardiovascular History: Reports: None Respiratory History: Reports: None Gastrointestinal History: Reports: GERD Genitourinary History: Reports: UTI, Recurrent Other Genitourinary History: UTI x 3 during ; none current. RN ACUTE DIALYSIS History: Reports: Other Hematologic History: Low platelets earlier in ; spontaneously resolved later in and WNL today - Past Surgical History Female Surgical History: Reports: None - SUBSTANCE USE Smoking Status *Q: Never Smoker Second Hand Smoke Exposure: No Recreational Drug Use History: No - HOME MEDS Home Medications: Home Meds Vit 90/Iron Fum/Folic [ Formula] 1 each PO DAILY 08/17/16 [ History] - CURRENT (IN HOUSE) MEDS Current Meds: Current Medications Diphenhydramine HCl (Benadryl) 25 mg IVPUSH Q6H PRN PRN Reason: pruritis Ephedrine Sulfate (Ephedrine Sulfate) 5 mg IVPUSH ASDIRECTED PRN PRN Reason: Hypotension Fentanyl (Sublimaze) 100 mcg EPIDUR Q3H PRN PRN Reason: Pain Last Admin: 02/03/20 11:35 Dose: 100 mcg Fentanyl/Bupivacaine HCl (Fentanyl/Bupivacaine/Ns 2 Mcg-0.125% 100 Ml) 100 ml EPIDUR ASDIRECTED PRN PRN Reason: Pain Last Admin: 02/03/20 11:35 Dose: 100 ml Oxytocin/Lactated Ringer's (Pitocin In Lr 10 Units/1,000 Ml) 10 unit in 1,000 mls @ 12 mls/hr IV TITRATE ROCHELLE; Protocol Last Titration: 02/03/20 09:45 Dose: 12 munits/min, 72 mls/hr Lactated Ringer's (Ringers, Lactated) 1,000 mls @ 125 mls/hr IV ASDIRECTED ROCHELLE Last Admin: 02/03/20 11:35 Dose: 125 mls/hr Oxytocin/Lactated Ringer's (Pitocin In Lr 10 Units/1,000 Ml) 10 unit in 1,000 mls @ 500 mls/hr IV .CONTINUOUS ROCHELLE Lidocaine/Sodium Bicarbonate (Buffered Lidocaine 1% In Ns 8.4%) 0.25 ml IDERM ONETIME PRN PRN Reason: Prior to IV Start Stop: 02/03/20 18:00 Nalbuphine HCl (Nubain) 10 mg IVPUSH Q2H PRN PRN Reason: Pain Ondansetron HCl (Zofran) 4 mg IVPUSH Q4H PRN PRN Reason: Nausea/Vomiting Sodium Chloride (Saline Flush) 10 ml FLUSH ASDIRECTED PRN PRN Reason: Keep Vein Open Sodium Chloride (Saline Flush) 10 ml FLUSH ASDIRECTED PRN PRN Reason: Keep Vein Open Discontinued Medications Lactated Ringer's (Ringers, Lactated) 1,000 mls @ 125 mls/hr IV ASDIRECTED ROCHELLE Last Admin: 02/03/20 07:00 Dose: 125 mls/hr Lactated Ringer's (Ringers, Lactated) 1,000 mls @ 100 mls/hr IV ASDIRECTED ROCHELLE Oxytocin/Lactated Ringer's (Pitocin In Lr 10 Units/1,000 Ml) 10 unit in 1,000 mls @ 500 mls/hr IV .CONTINUOUS ROCHELLE Lidocaine/Sodium Bicarbonate (Buffered Lidocaine 1% In Ns 8.4%) 0.25 ml IDERM ONETIME PRN PRN Reason: Prior to IV Start Nalbuphine HCl (Nubain) 10 mg IVPUSH Q2H PRN PRN Reason: Pain Ondansetron HCl (Zofran) 4 mg IVPUSH Q4H PRN PRN Reason: Nausea/Vomiting Sodium Chloride (Saline Flush) 10 ml FLUSH ASDIRECTED PRN PRN Reason: Keep Vein Open Sodium Chloride (Saline Flush) 10 ml FLUSH ASDIRECTED PRN PRN Reason: Keep Vein Open Terbutaline Sulfate (Brethine) 0.25 mg IV ONETIME PRN PRN Reason: external cephalic version Last Admin: 02/03/20 07:01 Dose: 0.25 mg Terbutaline Sulfate (Brethine) Confirm Administered Dose 1 mg .ROUTE .ST-MED ONE Stop: 02/03/20 06:52 Last Admin: 02/03/20 06:57 Dose: Not Given Terbutaline Sulfate (Brethine) 0.25 mg IV ONETIME PRN PRN Reason: external cephalic version
--- NOTE | 2020-02-03 18:21 | PCM.SN.2 ---
- Free Text/Narrative Note: Delivery Note: Tacos is a 30-year-old 2 para 1001 white female was admitted at 39-0/7 weeks gestational age with an SETH of 02/10/2020 for an attempt at external cephalic version for xavi breech presentation. Appropriate consents were signed for version and for section. labs were obtained. Anesthesia and surgery department were aware of the patient's version attempt. And was to proceed with if the version was unsuccessful. Timeout was performed. Patient IV in place and had received some IV fluids preprocedure. heart tones were reassuring pursestring. No contractions were noted. Cervix was found to be 2 cm dilated, 70% effaced, presenting part not palpated initially. Mid position cervix noted, very soft consistency. Bedside ultrasound was done and revealed a breech presentation. Head was noted in the right upper quadrant and back to the left with the baby in a xavi breech presentation. The patient was administered IV terbutaline 0.25 mg which was diluted to 5 mL and administered IV over 2-3 minutes. The patient tolerated this well.Using routine version technique the baby was converted to a cephalic presentation by rolling the baby forward using external manipulation. Patient has some discomfort but tolerated this generally well. Version took less than 2 minutes and had remained in the pelvis. heart tones were monitored �2 during this time and were found to be within normal limits. Monitors place afterwards and heart tones were reassuring. Terbutaline was discontinued and patient was started on IV Pitocin per protocol to facilitate increased uterine tone and initiate labor contractions. Tacos was augmented with artificial rupture membranes resulting in clear amniotic fluid and with Pitocin. She underwent labor epidural for analgesia. She progressed to complete cervical dilation and at 1720 hrs. she delivered a viable, lambert, male with Apgars of 8 and 9, weight of 3630 g (8 lbs. 0 oz.) and a length of 20.0 inches. Baby delivered in a right occiput anterior position. He was placed on mom's abdomen, nose and mouth were bulb suctioned and the baby was dried with a warm blanket. Pitocin was increased to 500 mL an hour per protocol to facilitate increased uterine tone and decreased likelihood of bleeding. The umbilical cord was allowed to pulsate �2-3 minutes and was clamped and cut by the patient's Shiraz. Cord blood was obtained. Patient had a small second-degree laceration of the perineum. This was repaired in routine fashion using 3-0 Monocryl suture. Labor epidural analgesia was used for perineal laceration repair anesthesia. Patient tolerated this well. The placenta delivered at 1736 hrs. in a Samuels presentation, appeared intact and complete and was discarded per patient desire. The patient plans to breast-feed. Estimated blood loss was 200 mL. Condition: Good
[2020-02-03] MEDS ORDERED: Docusate Sodium 100 MG Cap PO PRN (18:43)
[2020-02-03] MEDS ORDERED: Witch Hazel Medicated Pads 40/Jar TOP PRN (18:43)
[2020-02-03] MEDS ORDERED: Benzocaine/Menthol 20%-0.5% Spray 56 GM Canister TOP PRN (18:43)
[2020-02-03] MEDS: Ibuprofen 600 MG Tab PO PRN (19:26)
[2020-02-04] MEDS ORDERED: ePHEDrine 50 MG/ML SDV ONE
[2020-02-04] MEDS ORDERED: Bupivacaine 0.25% 10 ML SDV ONE
[2020-02-04] MEDS: Ibuprofen 600 MG Tab PO PRN ×4 (03:34→20:49)
--- NOTE | 2020-02-04 06:24 | PCM.SN.2 ---
- Free Text/Narrative Note: note: Patient is doing well in the period. Minimal lochia, voiding well, ambulated without problems. Nursing without concerns. Patient is afebrile, vital signs are stable Abdomen is flat, soft, uterus is below the umbilicus and is firm and nontender. Legs are nontender. Assessment: recovery going well. Plan: Routine care. Patient be discharged home within the next 24-48 hours.
--- NOTE | 2020-02-04 07:59 | PCM48HPAN ---
Post Anesthesia Note - EVALUATION WITHIN 48HRS OF ANESTHETIC Vital Signs in Normal Range: Yes Patient Participated in Evaluation: Yes Respiratory Function Stable: Yes Airway Patent: Yes Cardiovascular Function Stable: Yes Hydration Status Stable: Yes Pain Control Satisfactory: Yes Nausea and Vomiting Control Satisfactory: Yes Mental Status Recovered: Yes Vital Signs: Last Vital Signs Temp 36.5 C 02/04/20 03:27 Pulse 62 02/04/20 03:27 Resp 14 02/04/20 03:27 BP 113/64 02/04/20 03:27 Pulse Ox 100 02/04/20 03:27 - COMMENTS/OBSERVATIONS Free Text/Narrative:: no anesthesia complications noted
[2020-02-04] MEDS: Prenatal Multivitamin with Calcium/Folic Acid/Iron Tab PO SCH (08:51)
[2020-02-04] MEDS: Acetaminophen 325 MG Tab PO PRN ×2 (11:25→17:22)
--- NOTE | 2020-02-05 07:52 | PCM.DCSUM1 ---
Discharge Summary - Hospital Course Free Text/Narrative:: Tacos is a 30-year-old 2 para 1001 white female was admitted at 39-0/7 weeks gestational age with an SETH of 02/10/2020 for an attempt at external cephalic version for xavi breech presentation. Appropriate consents were signed for version and for section. labs were obtained. Anesthesia and surgery department were aware of the patient's version attempt. And was to proceed with if the version was unsuccessful. Timeout was performed. Patient IV in place and had received some IV fluids preprocedure. heart tones were reassuring pursestring. No contractions were noted. Cervix was found to be 2 cm dilated, 70% effaced, presenting part not palpated initially. Mid position cervix noted, very soft consistency. Bedside ultrasound was done and revealed a breech presentation. Head was noted in the right upper quadrant and back to the left with the baby in a xavi breech presentation. The patient was administered IV terbutaline 0.25 mg which was diluted to 5 mL and administered IV over 2-3 minutes. The patient tolerated this well.Using routine version technique the baby was converted to a cephalic presentation by rolling the baby forward using external manipulation. Patient has some discomfort but tolerated this generally well. Version took less than 2 minutes and had remained in the pelvis. heart tones were monitored �2 during this time and were found to be within normal limits. Monitors place afterwards and heart tones were reassuring. Terbutaline was discontinued and patient was started on IV Pitocin per protocol to facilitate increased uterine tone and initiate labor contractions. Tacos was augmented with artificial rupture membranes resulting in clear amniotic fluid and with Pitocin. She underwent labor epidural for analgesia. She progressed to complete cervical dilation and at 1720 hrs. she delivered a viable, lambert, male infant with Apgars of 8 and 9, weight of 3630 g (8 lbs. 0 oz.) and a length of 20.0 inches. Baby delivered in a right occiput anterior position. He was placed on mom's abdomen, nose and mouth were bulb suctioned and the baby was dried with a warm blanket. Pitocin was increased to 500 mL an hour per protocol to facilitate increased uterine tone and decreased likelihood of bleeding. The umbilical cord was allowed to pulsate �2-3 minutes and was clamped and cut by the patient's Shiraz. Cord blood was obtained. Patient had a small second-degree laceration of the perineum. This was repaired in routine fashion using 3-0 Monocryl suture. Labor epidural analgesia was used for perineal laceration repair anesthesia. Patient tolerated this well. The placenta delivered at 1736 hrs. in a Samuels presentation, appeared intact and complete and was discarded per patient desire. Estimated blood loss was 200 mL. patient is doing well. She is ambulating well, has minimal lochia, was voiding without concerns and is nursing without problems. She is desiring discharge home. Condition: Good - Discharge Data Discharge Date: 02/05/20 Discharge Disposition: Home, Self-Care 01 Condition: Good - Referral to Home Health Primary Care Physician: Clarence Thomas MD - Patient Instructions Diet: Regular Diet as Tolerated (Nursing diet with increased calories and calcium as recommended) Activity: As Tolerated (No intercourse or tampons until bleeding resolves) Driving: May Drive Today Showering/Bathing: May Shower (May take a bath) Notify Provider of: Fever, Increased Pain, Swelling and Redness, Nausea and/or Vomiting - Discharge Plan Home Medications: Home Meds Vit 90/Iron Fum/Folic [ Formula] 1 each PO DAILY 08/17/16 [History] Acetaminophen [Tylenol] 650 mg PO Q4H PRN tablet 02/05/20 [Rx] Ibuprofen [Motrin] 600 mg PO Q4H PRN tablet 02/05/20 [Rx] Referrals: Clarence Thomas MD [Primary Care Provider] - (Return to clinic�Dr. William ross nurse practitioner�2 weeks.) - Discharge Summary/Plan Comment DC Time >30 min.: No Discharge Summary/Plan Comment: Discharge instructions: 1. Discharge home 2. Diet, activity and follow-up discussed with patient. Recommend nursing diet with increased calories and calcium. 3. Precautions given concern increased pain, bleeding, temperature, signs/symptoms of DVT/PE. 4. Medications per home medication was printed, discussed with and given to the patient. 5. Return to clinic-Dr. Thomas or Re ross-nurse practitioner-[facility] in 2 weeks. Diagnosis: Term -delivered Condition: Good - Patient Data Vitals - Most Recent: Last Vital Signs Temp 36.7 C 02/05/20 01:54 Pulse 74 06/17/20 01:54 Resp 12 02/05/20 01:54 BP 106/58 L 02/05/20 01:54 Pulse Ox 99 02/05/20 01:54 Weight - Most Recent: 91.172 kg Med Orders - Current: Current Medications Acetaminophen (Tylenol) 650 mg PO Q4H PRN PRN Reason: mild pain or fever Last Admin: 02/04/20 17:22 Dose: 650 mg Documented by: Benzocaine/Menthol (Dermoplast Pain Relief [place]) 0 gm TOP ASDIRECTED PRN PRN Reason: Perineal Comfort Measure Last Admin: 02/03/20 19:27 Dose: 1 canister Documented by: Docusate Sodium (Colace) 100 mg PO BID PRN PRN Reason: Constipation Last Admin: 02/03/20 19:26 Dose: 100 mg Documented by: Ibuprofen (Motrin) 600 mg PO Q4H PRN PRN Reason: Mild pain or fever Last Admin: 02/04/20 20:49 Dose: 600 mg Documented by: Maileat Multivit/[place]/Iron/Folic Ac ( Plus Iron) 1 each PO DAILY ROCHELLE Last Admin: 02/04/20 08:51 Dose: 1 each Documented by: Amadou Aranda ([facility]) 1 pad TOP ASDIRECTED PRN PRN Reason: Perineal Comfort Measure Last Admin: 02/03/20 19:27 Dose: 1 tub Documented by: Discontinued Medications Bupivacaine HCl (Sensorcaine-Mpf 0.25%) 10 ml .ROUTE .STK-MED ONE Stop: 02/04/20 00:01 Diphenhydramine HCl (Benadryl) 25 mg IVPUSH Q6H PRN PRN Reason: pruritis Ephedrine Sulfate (Ephedrine Sulfate) 5 mg IVPUSH ASDIRECTED PRN PRN Reason: Hypotension Ephedrine Sulfate (Ephedrine Sulfate) 50 mg .ROUTE .STK-MED ONE Stop: 02/04/20 00:01 Fentanyl (Sublimaze) 100 mcg EPIDUR Q3H PRN PRN Reason: Pain Last Admin: 02/03/20 11:35 Dose: 100 mcg Documented by: Fentanyl/Bupivacaine HCl (Fentanyl/Bupivacaine/Ns 2 Mcg-0.125% 100 Ml) 100 ml EPIDUR ASDIRECTED PRN PRN Reason: Pain Last Admin: 02/03/20 11:35 Dose: 100 ml Documented by: Lactated Ringer's (Ringers, Lactated) 1,000 mls @ 125 mls/hr IV ASDIRECTED ROCHELLE Last Admin: 02/03/20 07:00 Dose: 125 mls/hr Documented by: Lactated Ringer's (Ringers, Lactated) 1,000 mls @ 100 mls/hr IV ASDIRECTED ROCHELLE Oxytocin/Lactated Ringer's (Pitocin In Lr 10 Units/1,000 Ml) 10 unit in 1,000 mls @ 500 mls/hr IV .CONTINUOUS ROCHELLE Oxytocin/Lactated Ringer's (Pitocin In Lr 10 Units/1,000 Ml) 10 unit in 1,000 mls @ 12 mls/hr IV TITRATE ROCHELLE; Protocol Last Titration: 02/03/20 17:28 Dose: 999 munits/min, 5,994 mls/hr Documented by: Lactated Ringer's (Ringers, Lactated) 1,000 mls @ 125 mls/hr IV ASDIRECTED ROCHELLE Last Admin: 02/03/20 11:35 Dose: 125 mls/hr Documented by: Oxytocin/Lactated Ringer's (Pitocin In Lr 10 Units/1,000 Ml) 10 unit in 1,000 mls @ 500 mls/hr IV .CONTINUOUS ROCHELLE Last Admin: 02/03/20 17:50 Dose: 500 mls/hr Documented by: Lidocaine/Sodium Bicarbonate (Buffered Lidocaine 1% In Ns 8.4%) 0.25 ml IDERM ONETIME PRN PRN Reason: Prior to IV Start Lidocaine/Sodium Bicarbonate (Buffered Lidocaine 1% In Ns 8.4%) 0.25 ml IDERM ONETIME PRN PRN Reason: Prior to IV Start Stop: 02/03/20 18:00 Nalbuphine HCl (Nubain) 10 mg IVPUSH Q2H PRN PRN Reason: Pain Nalbuphine HCl (Nubain) 10 mg IVPUSH Q2H PRN PRN Reason: Pain Ondansetron HCl (Zofran) 4 mg IVPUSH Q4H PRN PRN Reason: Nausea/Vomiting Ondansetron HCl (Zofran) 4 mg IVPUSH Q4H PRN PRN Reason: Nausea/Vomiting Sodium Chloride (Saline Flush) 10 ml FLUSH ASDIRECTED PRN PRN Reason: Keep Vein Open Sodium Chloride (Saline Flush) 10 ml FLUSH ASDIRECTED PRN PRN Reason: Keep Vein Open Sodium Chloride (Saline Flush) 10 ml FLUSH ASDIRECTED PRN PRN Reason: Keep Vein Open Sodium Chloride (Saline Flush) 10 ml FLUSH ASDIRECTED PRN PRN Reason: Keep Vein Open Terbutaline Sulfate (Brethine) 0.25 mg IV ONETIME PRN PRN Reason: external cephalic version Last Admin: 02/03/20 07:01 Dose: 0.25 mg Documented by: Terbutaline Sulfate (Brethine) Confirm Administered Dose 1 mg .ROUTE .[facility]-MED ONE Stop: 02/03/20 06:52 Last Admin: 02/03/20 06:57 Dose: Not Given Documented by: Terbutaline Sulfate (Brethine) 0.25 mg IV ONETIME PRN PRN Reason: external cephalic version
[2020-02-05] MEDS: Prenatal Multivitamin with Calcium/Folic Acid/Iron Tab PO SCH (10:37)
[2020-02-05 10:43] VITALS: BP 101/63; PULSE 89
== END 2020-02-05 10:40 | disposition home or self-care (01) | DRG 560 ==
LOC: JD.OB 05:19 → OBSVTOIN 17:28 → JD.OB 17:29
PROVIDERS: ADMIT Obstetrics & Gynecology; ATTEND Obstetrics & Gynecology
PROC: 10E0XZZ Delivery of Products of Conception, External Approach (ICD-10-PCS; principal; 2020-02-03)
PROC: 10907ZC Drainage of Amniotic Fluid, Therapeutic from Products of Conception, Via Natural or Artificial Opening (ICD-10-PCS; 2020-02-03)
PROC: 0KQM0ZZ Repair Perineum Muscle, Open Approach (ICD-10-PCS; 2020-02-03)
PROC: 3E0R3BZ Introduction of Anesthetic Agent into Spinal Canal, Percutaneous Approach (ICD-10-PCS; 2020-02-03)
PROC: 10S0XZZ Reposition Products of Conception, External Approach (ICD-10-PCS; 2020-02-03)
DX: O32.1XX0 Maternal care for breech presentation, not applicable or unspecified (principal); Z3A.39 39 weeks gestation of pregnancy; Z37.0 Single live birth; O70.1 Second degree perineal laceration during delivery; Z88.0 Allergy status to penicillin; Z11.59 Encounter for screening for other viral diseases
CPT/HCPCS: 01967; 36415; 51702; 59025; 59409; 59412; 85025; 86592; 86850; 86900; 86901; A9270-GY; J2590; J3010; J3105; J3490; J7120; U0002

== ENCOUNTER 2022-03-03 02:30 | Inpatient (IN) | payer BC ==
[2022-03-03] MEDS ORDERED: Sodium Chloride 0.9% 10 ML Syringe FLUSH PRN (10:41)
[2022-03-03] MEDS ORDERED: Terbutaline 1 MG/ML SDV IV ONE (10:43)
[2022-03-03] MEDS ORDERED: Terbutaline 1 MG/ML SDV ONE (15:46)
[2022-03-03] MEDS: Lactated Ringers 1,000 ML IV SCH ×2 (16:10→20:52)
[2022-03-03] MEDS: Oxytocin/Lactated Ringers 10 UNIT/1,000 ML BAG IV SCH (16:10)
[2022-03-03] MEDS ORDERED: Nalbuphine HCl 10 MG/ 1ML Amp IVPUSH PRN (16:13)
[2022-03-03] MEDS ORDERED: Ondansetron 4 MG/2 ML SDV IVPUSH PRN (16:13)
[2022-03-03] MEDS ORDERED: Lidocaine 1% 50 ML MDV INJECT SCH (16:13)
[2022-03-03] MEDS ORDERED: Sodium Chloride 0.9% 10 ML Syringe FLUSH SCH (21:00)
[2022-03-03] MEDS ORDERED: diphenhydrAMINE 50 MG/ML SDV IVPUSH PRN (21:03)
[2022-03-03] MEDS ORDERED: fentaNYL 100 MCG/2 ML SDV EPIDUR PRN (21:03)
[2022-03-03] MEDS ORDERED: ePHEDrine 50 MG/ML SDV IVPUSH PRN (21:03)
[2022-03-03] MEDS ORDERED: Bupivacaine/fentaNYL/NS 100 ML Bag EPIDUR PRN (21:03)
[2022-03-04] MEDS ORDERED: Docusate Sodium 100 MG Cap PO PRN (03:15)
[2022-03-04] MEDS ORDERED: Ibuprofen 600 MG Tab PO PRN (03:15)
[2022-03-04] MEDS ORDERED: Benzocaine/Menthol 20%-0.5% Spray 78 GM Cannister TOP PRN (03:15)
[2022-03-04] MEDS ORDERED: Acetaminophen 325 MG Tab PO PRN (03:15)
[2022-03-04] MEDS ORDERED: Witch Hazel Medicated Pads 40/Jar TOP PRN (03:15)
[2022-03-04] MEDS ORDERED: Methylergonovine 0.2 MG/1 ML Amp IM STA (03:55)
[2022-03-04] MEDS: Oxytocin/Lactated Ringers 10 UNIT/1,000 ML BAG IV SCH (04:11)
[2022-03-04] MEDS: Misoprostol 200 MCG Tab PO SCH ×2 (06:06→08:52)
[2022-03-04] MEDS ORDERED: Oxytocin/Lactated Ringers 20 UNIT/1,000 ML BAG IV SCH (07:30)
[2022-03-04] MEDS: Prenatal Multivitamin with Calcium/Folic Acid/Iron Tab PO SCH (08:51)
[2022-03-04] MEDS: Ferrous Sulfate 324 MG Tab.EC PO SCH (08:52)
[2022-03-04] MEDS ORDERED: Ondansetron 4 MG/2 ML SDV IVPUSH PRN (09:33)
[2022-03-04] MEDS ORDERED: Acetaminophen/oxyCODONE 325-5 MG Tab PO ONE (09:35)
[2022-03-05 11:35] VITALS: BP 120/87; PULSE 79
[2022-03-05] MEDS: Ferrous Sulfate 324 MG Tab.EC PO SCH (12:15)
[2022-03-05] MEDS: Prenatal Multivitamin with Calcium/Folic Acid/Iron Tab PO SCH (12:15)
== END 2022-03-05 14:45 | disposition home or self-care (01) | DRG 560 ==
LOC: JD.OB 02:30 → INTOOBSV 10:31 → JD.OB 03-04 00:53 → OBSVTOIN 03-04 02:30 → JD.OB 03-04 04:18
PROVIDERS: ADMIT Obstetrics & Gynecology; ATTEND Obstetrics & Gynecology
PROC: 10S0XZZ Reposition Products of Conception, External Approach (ICD-10-PCS; 2022-03-03)
PROC: 10E0XZZ Delivery of Products of Conception, External Approach (ICD-10-PCS; principal; 2022-03-04)
PROC: 0KQM0ZZ Repair Perineum Muscle, Open Approach (ICD-10-PCS; principal; 2022-03-04)
DX: O32.1XX0 Maternal care for breech presentation, not applicable or unspecified (principal); O72.1 Other immediate postpartum hemorrhage; Z3A.39 39 weeks gestation of pregnancy; Z37.0 Single live birth
CPT/HCPCS: 01967; 36415; 51701; 51702; 59025; 59409; 59412; 85025; 85362; 85384; 85610; 86592; 86850; 86900; 86901; A9270-GY; J2210; J2405; J2590; J3010; J3105; J7120